=== PATIENT | male | born 1985 | race Caucasian/White ===

== ENCOUNTER 2024-09-29 20:52 | Emergency (ER) | payer OTHER, SELFPAY ==
[2024-09-29] VITALS (7 sets, daily range): BP systolic 103–113; BP diastolic 64–80; PULSE 80–105; RESP 18; TEMP 37–37.3; O2SAT 96–99; BMI 25.8
--- NOTE | 2024-09-29 22:17 | ED_ITS ---
HPI - General Adult General Date Seen: 09/29/24 Chief complaint: Nausea/Vomiting Stated complaint: Throwing up/Fever Time Seen by Provider: 09/29/24 22:16 History of Present Illness HPI narrative: 39 yo generally healthy [facility] and vomiting, fever, dehydration and weakness. He and his have both been sick since early this morning with similar symptoms. Since about 5:00 a.m. he has had nausea and has had multiple episodes of nonbilious, nonbloody emesis throughout the day today. He has been quite nauseous and not able to keep much p.o. fluids down. No solids. He has had intermittent fevers and chills and sometimes some crampy abdominal pain mostly on the left upper quadrant. He is not really having diarrhea. His children were sick a week ago with [id number] disease but so far they do not have the GI illness that the patient and his have. He did try taking 1 of his 's Zofran 0 DT , with minimal improvement. He has noted that he is more dehydrated and urine has been dark colored. Related Data Home Medications ?Medication ?Instructions ?Recorded ?Confirmed No Known Home Medications 09/29/2409/03 Allergies Allergy/AdvReac Type Severity Reaction Status Date / Time No Known Drug Allergies Allergy Verified 09/29/24 21:24 [facility] Medical History (Updated 09/29/24 @ 23:59 by Rodolfo Orozco MD) No significant past medical history Surgical History (Updated 09/29/24 @ 22:28 by Tacos Doherty RN) No significant past surgical history Social History Smoking Status: Never smoker Second hand tobacco smoke exposure: No How often do you have a drink containing alcohol: never AUDIT-C Alcohol total score: 0 Non-prescribed substance use: denies use Exam Narrative: Exam Narrative: Constitutional: Appears well-developed and well-nourished. Alert. Conversant. Non toxic. HENT: Head: Atraumatic. Nose: Nose normal. Mouth/Throat: Oral mucosa is clear but dry. Not desiccated or cracked. no trismus. Pharynx normal. Tonsils symmetric. No tonsillar enlargement, erythema, or exudate. Eyes: Conjunctivae normal. EOM normal. Pupils equal, round, and reactive to light. No scleral icterus. Neck: Normal range of motion. Neck supple. No tracheal deviation present. Cardiovascular: Normal rate, regular rhythm. No gallop. No friction rub. No murmur heard. Symmetric radial artery pulses Pulmonary/Chest: Effort normal. No stridor. No respiratory distress. No wheezes. No rales. No rhonchi . No tenderness. Abdominal: Soft. Bowel sounds normal. No distension. No mass. Mild left upper quadrant tenderness. No rebound. No guarding. No CVA tenderness Musculoskeletal: RUE: Normal range of motion. No tenderness. No deformity LUE: Normal range of motion. No tenderness. No deformity RLE: Normal range of motion. No edema. No tenderness. No deformity LLE: Normal range of motion. No edema. No tenderness. No deformity Neurological: Alert and oriented to person, place, and time. Normal strength. CN II-VII intact. No sensory deficit. GCS eye subscore is 4. GCS verbal subscore is 5. GCS motor subscore is 6. Normal coordination Skin: Skin is warm and dry. No rash noted. No pallor. Normal capillary refill. Psychiatric: Normal mood. Normal affect. Const: Vital Signs, click to edit/add: Vital Signs - 24 hr 09/29/24 21:22 09/29/24 22:25 09/29/24 22:25 Temperature 98.6 F 99.2 F 99.2 F Pulse Rate 81 Pulse Rate [Pulse Oximeter] 105 H 82 Respiratory Rate 18 18 18 Blood Pressure 107/73 Blood Pressure [Ri ght Upper Arm] 103/80 107/73 Pulse Oximetry 98 98 97 Oxygen Delivery Me thod Room Air Room Air 09/29/24 22:38 09/30/24 00:00 Temperature 99.2 F 99.2 F Pulse Rate Pulse Rate [Pulse Oximeter] Respiratory Rate Blood Pressure Blood Pressure [Ri ght Upper Arm] Pulse Oximetry Oxygen Delivery Me thod Course Course ED Course: Recheck-nausea much improved. Feeling quite a bit better after Zofran and IV fluids. Tolerated apple juice. Feels like he can discharge home. Vital Signs Vital signs: Initial Vital Signs Temperature 98.6 F 09/29/24 21:22 Temperature Source Temporal Artery Scan 09/29/24 21:22 Pulse Rate 105 H 09/29/24 21:22 Respiratory Rate 18 09/29/24 21:22 Blood Pressure 103/80 07/28/25 21:22 Blood Pressure Mean 87 09/29/24 21:22 Pulse Oximetry 98 09/29/24 21:22 Oxygen Delivery Method Room Air 09/29/24 21:22 Vital Signs Temperature 98.6 F 09/29/24 21:22 Pulse Rate 105 H 09/29/24 21:22 Respiratory Rate 18 09/29/24 21:22 Blood Pressure 103/80 09/29/24 21:22 Pulse Oximetry 98 09/29/24 21:22 Oxygen Delivery Method Room Air 09/29/24 21:22 Temperature 99.2 F 09/30/24 00:00 Pulse Rate 82 09/29/24 22:25 Respiratory Rate 18 09/29/24 22:25 Blood Pressure 107/73 09/29/24 22:25 Pulse Oximetry 97 09/29/24 22:25 Oxygen Delivery Method Room Air 09/29/24 22:25 Medications Administered Medications: Discontinued Medications Generic Name Dose Route Start Last Admin Trade Name Freq PRN Reason Stop Dose Admin Sodium Chloride 1,000 mls @ 1,000 mls/hr 09/29/24 22:30 09/29/24 23:13 0.9 % Sodium Chloride 1000 Ml IV 09/29/24 23:29 Infused .Q1H ESTHER Infusion Ketorolac Tromethamine 15 mg 09/29/24 22:27 09/29/24 22:38 Ketorolac 15 Mg/Ml Inj IVP 09/29/24 22:28 15 mg ONCE ONE Administration Ondansetron HCl 4 mg 09/29/24 22:28 09/29/24 22:30 Ondansetron 2 Mg/Ml Inj IVP 09/29/24 22:29 4 mg ONCE ONE Administration Medical Decision Making MDM Narrative Medical decision making narrative: This patient presents with vomiting fever throughout the day today. His is sick with similar symptoms. The patient's symptoms and exam could be consistent with a viral GI infection. There is no high fever, severe pain, bilious or bloody emesis, blood or mucous in the stool, severe abdominal pain, or other concerning signs for a bacterial infection. No recent travel or high risk exposure for bacterial pathogen. No recent antibiotics or risk factors for C. diff. I don't see any evidence for appendicitis, bowel obstruction, abscess, bowel perforation, or other surgical emergency. Labs show no concerning electrolyte disturbance or renal failure. After meds given the patient is feeling better. At this point, the patient is non-septic appearing and well hydrated.I think the patient can be managed as an outpatient. We have discussed oral rehydration strategies. They understand and can perform the needed interventions at home. I have provided a prescription for antiemetics to facilitate oral hydration ([employer] for Zofran 0 DT). We have discussed the signs and symptoms of worsening dehydration. They understand the need for immediate reevaluation if any of these symptoms occur. They are also directed to obtain close outpatient follow up within 2-3 days. Lab Data Labs: Lab Results 09/29/24 Range/Units 22:15 WBC 6.85 (4.50-11.00) K/uL RBC 4.93 (4.30-5.90) m/uL Hgb 14.9 (13.5-17.5) gm/dL Hct 43.1 (37.0-53.0) % MCV 87 (80-100) fL MCH 30 (26-34) pg MCHC 35 (32-36) gm/dL RDW Coeff of Erica 12.4 (11.5-15.5) % Plt Count 221 (140-440) K/uL Neut % (Auto) 88.5 H (42.0-72.0) % Lymph % (Auto) 6.3 L (20-44) % Caroline % (Auto) 3.9 (0.0-11.0) % Eos % (Auto) 0.0 (0.0-7.0) % Baso % (Auto) 0.0 (0.0-3.0) % Neut # (Auto) 6.10 (1.7-7.0) K/uL Lymph # (Auto) 0.40 L (0.90-2.90) K/uL Caroline # (Auto) 0.30 (0.00-0.90) K/UL Eos # (Auto) 0.00 (0.00-0.50) K/uL Baso # (Auto) 0.00 (0.00-0.30) K/uL Abs Immat Gran (auto) 0.09 (0.00-0.30) K/uL Imm/Tot Granulo (auto) 1.3 % Sodium 136 (135-149) mmol/L Potassium 3.9 (3.6-5.1) mmol/L Chloride 102 (96-114) mmol/L Carbon Dioxide 25 (20-32) mmol/L Anion Gap 9 (7-15) mEq/L BUN 23 (5-24) mg/dL Creatinine 1.2 (0.5-1.5) mg/dL Estimated Creat Clear 84.49 Estimated GFR 78 ml/min Glucose 114 (60-115) mg/dL Calcium 8.8 (8.4-10.6) mg/dL Discharge Plan Discharge Clinical Impression: Vomiting, Acute dehydration Patient Disposition: Home, Self-Care Condition: Stable Instructions: Dehydration (ED), Acute Nausea and Vomiting (ED) Additional Instructions: As we discussed, you can use the Zofran if needed for nausea and help control vomiting up to 3 times daily as needed. Right now we suspect that this is probably a viral illness. We expect this should get better over the next 24-48 hours. If you have any worsening symptoms (such as high fever, bloody vomiting, severe abdominal pain) or if you are not completely improved within 48 hours, please come back to the ER or see your doctor immediately to be rechecked. Prescriptions: No Action No Known Home Medications Follow Up/Referrals: Provider,Not a Local [Primary Care Provider, Family Practice] Stand Alone Forms: [employer] Instructions
[2024-09-29] MEDS: ONDANSETRON 2 MG/ML inj 4 MG IVP (22:30)
[2024-09-29 22:48] LABS: Chloride* 102 mmol/L (96-114); Sodium* 136 mmol/L (135-149)
[2024-09-29 22:49] LABS: Potassium* 3.9 mmol/L (3.6-5.1)
--- OUTSIDE RECORDS SUMMARY | 2024-09-29 22:50 | XMS_ITS | Clinical Summary ---
Author Organization [facility] Address [address] [place] [id number] Care Team Providers Care Detective Investigator Name Role Phone Unavailable Primary Care Provider Unavailabl e Source Comments You are receiving this document as you are listed as the primary care provider,follow-up provider, or the patient has been referred to you for consultation.This is in compliance with the Medicare and[facility] E[facility] Incentive [facility],which states Providers who transition their patient to another setting of careor provider of care or refers their patient to another provider of care shouldprovide summary care record for each transition of care or referral. [facility] No known active allergies Medications amphetamine-dex troamphetamine XR (ADDERALL XR) 20 MG 24 hour release capsule Take 1 Capsule (20 mg) by mouth daily. 2 Active guaiFENesin-cod eine (ROBITUSSINAC) 100-10 MG/5ML solution Take 10 mL by mouth at bedtime as needed for Other. 120 mL 2 Active Additional Information Patient not taking.Reported on 02/26/2024 Active Problems No known active problems Social History Tobacco Use Types Packs/Day Years Used Date Smoking Tobacco: Never Smokeless Tobacco: Never Tobacco Cessation:Counseling Given: Not Answered Sex and Gender Information Value Date Recorded Sex Assigned at Not on file Legal Sex Male 9:14 AM [employer] Gender Identity Not on file Sexual Orientation Not on file Last Filed Vital Signs Vital Sign Reading Time Taken Comments Blood Pressure 105/68 02/26/2024 9:55 AM [employer] Pulse 66 02/26/2024 9:55 AM [employer] Temperature 36.8 C (98.2 F) 02/26/2024 9:55 AM [employer] Respiratory Rate 16 02/26/2024 9:55 AM [employer] Oxygen Saturation 99% 02/26/2024 9:55 AM [employer] Inhaled Oxygen Concentration - - Weight - - Height - - Body Mass Index - - Plan of Treatment Health Maintenance Due Date Last Done Comments Hep C Screening (Preventive Services) 1984 HIV Screening (Preventive Services) 2000 Adult Preventive Visit 2002 DTaP/Tdap/Td Vaccine (1 - Tdap) 05/07/2003 HepB Vaccine (1) 05/07/2003 Cholesterol 05/07/2019 COVID-19 Vaccine (1 - 2023-2 5 season) 2023 Influenza Vaccine (#1) 2024 Zoster/Shingles Vaccine (1 of 2) 2034 MCV4 Vaccine Aged Out 12/08/2002 No longer eligi ble based on patient's age to complete this topic HPV Vaccine Aged Out No longer eligi ble based on patient's age to complete this topic HepA Vaccine Aged Out No longer eligi ble based on patient's age to complete this topic Hib Vaccine Aged Out No longer eligi ble based on patient's age to complete this topic IPV (Polio) Vaccine Aged Out No longe r eligible based on patient's age to complete this topic Meningococcal B Vaccine Aged Out No l onger eligible based on patient's age to complete this topic Pneumococcal Vaccine Aged Out No long er eligible based on patient's age to complete this topic Insurance [facility]
[2024-09-29 22:52] LABS: Anion Gap 9 mEq/L (7-15); Blood Urea Nitrogen* 23 mg/dL (5-24); Calcium* 8.8 mg/dL (8.4-10.6); Carbon Dioxide* 25 mmol/L (20-32); Creatinine* 1.2 mg/dL (0.5-1.5); Est. Creatinine Clearance* 84.49; Estimated Glomerular Filt Rate 78 ml/min; Glucose* 114 mg/dL (60-115)
[2024-09-29 22:59] LABS: Hematocrit 43.1 % (37.0-53.0); Hemoglobin* 14.9 gm/dL (13.5-17.5); Immature Granulocytes Abs Auto 0.09 K/uL (0.00-0.30); Immature Granulocytes Pct Auto 1.3 %; Mean Corpuscular HGB Conc 35 gm/dL (32-36); Mean Corpuscular Hemoglobin 30 pg (26-34); Mean Corpuscular Volume 87 fL (80-100); RDW Coefficient of Variation % 12.4 % (11.5-15.5); Red Blood Count 4.93 m/uL (4.30-5.90); White Blood Count* 6.85 K/uL (4.50-11.00)
[2024-09-29 23:00] LABS: Lymphocytes Absolute Auto 0.40 K/uL (0.90-2.90)
[2024-09-29 23:01] LABS: Slide Review Reflex No
[2024-09-30] VITALS: TEMP 37.3
[2024-09-30 00:08] VITALS: BP 107/73; PULSE 82; RESP 18; TEMP 37.3
== END 2024-09-30 00:09 | disposition home or self-care (01) ==
PROVIDERS: Emergency Provider Emergency Medicine
DX: R11.2 Nausea with vomiting, unspecified (principal); E86.0 Dehydration
CPT/HCPCS: 36415; 80048; 85025; 94761; 96374; 96375; 99282; 99283; J1885; J2405; J7030